=== PATIENT | female | born 1980 | race Caucasian/White ===

== ENCOUNTER 2017-12-15 10:39 | Emergency (ER) ==
[2017-12-15 10:47] VITALS: BP 149/99; TEMP 99.1; BMI 27.3
[2017-12-15] MEDS ORDERED: ATIVAN PO STA (10:53)
[2017-12-15] MEDS ORDERED: ATIVAN IM STA (11:33)
--- NOTE | 2017-12-15 13:21 | ED.PDOC ---
General ED Provider: Dr. ROM NASCIMENTO-ER Chief Complaint: Behavioral Complaint Stated Complaint: im got anxious suddenly--i had to leave work--nothing triggered this feeling Time Seen by Physician: 10:45 Mode of Arrival: Walk-In Information Source: Patient Exam Limitations: No limitations Primary Care Provider: ALISTAIR AGOSTO Nursing and Triage Documentation Reviewed and Agree: Yes Reviewed sepsis parameters & appropriate labs ordered?: Yes System Inflammatory Response Syndrome: Not Applicable Sepsis Protocol: For patient's 13 years and over: Temp is 96.8 and below OR 101 and greater Pulse >90 BPM Resp >20/minute Acutely Altered Mental Status Are patient's symptoms suggestive of a new infection, such as: -Pneumonia -Skin, Soft Tissue -Endocarditis -UTI -Bone, Joint Infection -Implantable Device -Acute Abdominal Infection -Wound Infection -Meningitis -Blood Stream Catheter Infection -Unknown Psychological Complaint Exam - Psychiatric Complaint/Exam Patient Complains Of: Present: Other Onset/Duration: one hour Symptoms Are: Still present Initial Severity: Mild Current Severity: Mild Character: Present: Depressed, Fearful, Anxious, Frustrated Aggravating: Reports: None Associated Signs And Symptoms: Denies: Hostile, Confused, Hallucinating, Paranoid behavior, Sleep disturbance, Appetite change Related History: Denies: Suicidal thoughts, Suicidal plan, Suicidal gestures, Homicidal thoughts, Homicidal plan, Homicidal gestures, Prior attempts, Drug ingestion Completed Suicide Risk Factors: Patient Accompanied By: Family Patient In Custody Of Police: No Social Withdrawal Present: No Social Isolation Present: No Prior Suicide Attempt: No Injury From Prior Suicide Attempt: No Related Surgical History: Reports: None Patient Uncooperative For Exam: No Mood: Present: Agitated, Anxious Thought Process: Present: Logical Insight: Present: Good Memory: Intact Judgement: Normal Patient Medically Stable For: Psych evaluation Differential Diagnoses: Anxiety Review of Systems - Review Of Systems Constitutional: Reports: No symptoms Eyes: Reports: No symptoms Ears, Nose, Mouth, Throat: Reports: No symptoms Respiratory: Reports: No symptoms Cardiac: Reports: No symptoms GI: Reports: No symptoms : Reports: No symptoms Musculoskeletal: Reports: No symptoms Skin: Reports: No symptoms Neurological: Reports: Anxiety Endocrine: Reports: No symptoms Hematologic/Lymphatic: Reports: No symptoms All Other Systems: Reviewed and Negative Past Medical History - Past Medical History Previously Healthy: No Endocrine: Reports: Unknown Cardiovascular: Reports: Unknown Respiratory: Reports: Unknown Hematological: Reports: Unknown Gastrointestinal: Reports: Unknown Genitourinary: Reports: Unknown Neuro/Psych: Reports: Unknown Musculoskeletal: Reports: Unknown Cancer: Reports: Unknown Last Menstrual Period: 3 weeks ago - Surgical History General Surgical History: Reports: Unknown - Family History Family History: Reports: Unknown - Social History Smoking Status: Current every day smoker Hx Substance Use: No Alcohol Screening: None - Immunizations Tetanus Shot up to Date: Yes Physical Exam - Physical Exam Appearance: Well-appearing, No pain distress, Well-nourished Eyes: BRITTANY, EOMI, Conjunctiva clear ENT: Ears normal, Nose normal, Oropharynx normal Neck: Supple Respiratory: Airway patent, Breath sounds clear, Breath sounds equal, Respirations nonlabored Cardiovascular: RRR, Pulses normal, No rub, No murmur GI/: Soft, Nontender, No masses, Bowel sounds normal, No Organomegaly Musculoskeletal: Normal strength, ROM intact, No edema, No calf tenderness Skin: Warm Neurological: Sensation intact Psychiatric: Affect appropriate, Mood appropriate, Anxious Critical Care Note - Critical Care Note Total Time (mins): 0 Course - Course Hematology/Chemistry: 12/15/17 12:48 12/15/17 12:48 Orders, Labs, Meds: Lab Review 12/15/17 12/15/17 12/15/17 12:48 12:48 13:20 WBC 13.12 H RBC 4.79 Hgb 14.4 Hct 42.9 MCV 89.6 MCH 30.1 MCHC 33.6 RDW Coeff of Gerald 13.3 Plt Count 414 Immature Gran % (Auto) 0.5 Neut % (Auto) 57.8 Lymph % (Auto) 32.9 Swisher % (Auto) 7.2 Eos % (Auto) 1.1 Baso % (Auto) 0.5 Immature Gran # (Auto) 0.1 Neut # (Auto) 7.6 H Lymph # (Auto) 4.3 H Swisher # (Auto) 1.0 Eos # (Auto) 0.2 Baso # (Auto) 0.1 Sodium 140 Potassium 3.8 Chloride 104 Carbon Dioxide 22 Anion Gap 17.8 BUN 10 Creatinine 0.93 Estimated GFR (MDRD) 68.00 BUN/Creatinine Ratio 10.75 Glucose 104 Calcium 10.0 Total Bilirubin 0.7 AST 27 ALT 20 Alkaline Phosphatase 80 Total Protein 8.0 Albumin 4.2 Globulin 3.8 Albumin/Globulin Ratio 1.11 TSH 1.620 Free T4 1.05 Urine Color Yellow Urine Clarity Clear Urine pH 5.0 Ur Specific [place] 1.015 Urine Protein Negative Urine Glucose (UA) Negative Urine Ketones Negative Urine Blood 3+ Urine Nitrite Positive Urine Bilirubin Negative Urine Urobilinogen 0.2 Ur Leukocyte Esterase Negative Urine Microscopic RBC 5-10 Ur Squamous Epith Cells 10-20 Urine Bacteria 4+ Urine Test 12/15/17 13:20 WBC RBC Hgb Hct MCV MCH MCHC RDW Coeff of Gerald Plt Count Immature Gran % (Auto) Neut % (Auto) Lymph % (Auto) Swisher % (Auto) Eos % (Auto) Baso % (Auto) Immature Gran # (Auto) Neut # (Auto) Lymph # (Auto) Swisher # (Auto) Eos # (Auto) Baso # (Auto) Sodium Potassium Chloride Carbon Dioxide Anion Gap BUN Creatinine Estimated GFR (MDRD) BUN/Creatinine Ratio Glucose Calcium Total Bilirubin AST ALT Alkaline Phosphatase Total Protein Albumin Globulin Albumin/Globulin Ratio TSH Free T4 Urine Color Urine Clarity Urine pH Ur Specific [place] Urine Protein Urine Glucose (UA) Urine Ketones Urine Blood Urine Nitrite Urine Bilirubin Urine Urobilinogen Ur Leukocyte Esterase Urine Microscopic RBC Ur Squamous Epith Cells Urine Bacteria Urine Test Negative Orders Category Date Time Status CBC W/ AUTO DIFF Stat LAB 12/15/17 12:48 Completed COMPREHENSIVE METABOLIC PANEL Stat LAB 12/15/17 12:48 Completed FREE T4 (FREE THYROXINE) Stat LAB 12/15/17 12:48 Completed TSH [THYROID STIMULATING HORMONE] Stat LAB 12/15/17 12:48 Completed UA [URINALYSIS C & S IF INDICATED] Stat LAB 12/15/17 13:20 Completed URINE CULTURE Routine LAB 12/15/17 13:20 Received URINE Stat LAB 12/15/17 13:20 Completed Lorazepam [Ativan] MEDS 12/15/17 11:33 Discontinued 1 mg IM ONCE STA Lorazepam [Ativan] MEDS 12/15/17 10:53 Discontinued 1 mg PO ONCE STA Medications Discontinued Medications Generic Name Dose Route Start Last Admin Trade Name Freq PRN Reason Stop Dose Admin Lorazepam 1 mg 12/15/17 10:53 12/15/17 10:59 Ativan PO 12/15/17 10:54 1 mg ONCE STA Administration Lorazepam 1 mg 12/15/17 11:33 12/15/17 12:06 Ativan IM 12/15/17 11:34 2 mg ONCE STA Administration Vital Signs: Temp Pulse Resp BP Pulse Ox 12/15/17 10:40 99.1 F 114 H 16 149/99 H 97 Departure - Departure Time of Disposition: 14:21 Disposition: HOME SELF-CARE Discharge Problem: UTI (urinary tract infection), Anxiety Instructions: Anxiety (ED) Condition: Good Pt referred to PMD for follow-up: Yes IPMP verified?: No Additional Instructions: cipro 500mg bid x 7 days--ativan 0.5mg q 12hrs prn anxiety#10=---f/u with dr agosto Allergies/Adverse Reactions: Allergies acetaminophen [From Lortab] Adverse Reaction (Verified 12/15/17 10:48) hydrocodone [From Lortab] Adverse Reaction (Verified 12/15/17 10:48) Sulfa (Sulfonamide Antibiotics) Adverse Reaction (Verified 06/19/13 17:51) Disposition Discussed With: Patient, Family Discharge Problem: UTI (urinary tract infection) Qualifiers: Urinary tract infection type: acute cystitis Hematuria presence: without hematuria Qualified Code(s): N30.00 - Acute cystitis without hematuria
== END 2017-12-15 14:29 | disposition home or self-care (01) ==
LOC: ED 10:39
DX: N30.00 Acute cystitis without hematuria (principal); F41.9 Anxiety disorder, unspecified; F17.210 Nicotine dependence, cigarettes, uncomplicated
CPT/HCPCS: 36415; 80053; 81001; 81025; 84439; 84443; 85025; 87086; 87186; 96372; 99283